=== PATIENT | male | born 1985 | race American Indian/Alaskan Native ===

== ENCOUNTER 2016-07-23 07:47 | Emergency (ER) | payer MEDICAID, OTHER ==
[2016-07-23] MEDS ORDERED: SUBLIMAZE IV ONE ×2 (08:14→11:12)
[2016-07-23] MEDS ORDERED: ZOFRAN IV ONE (08:15)
[2016-07-23] MEDS ORDERED: NACL ONE (08:50)
[2016-07-23 08:56] LABS: Hematocrit 31.8 % (35.5-45.6); Hemoglobin 10.6 gm/dl (11.8-15.2); Mean Corpuscular HGB Conc 33 % (32-34); Mean Corpuscular Volume 73 fl (84-94); Platelet Count 166 K/mm3 (140-440); Red Blood Count 4.36 M/mm3 (3.65-5.03); Red Cell Distribution Width 19.1 % (13.2-15.2); White Blood Count 5.3 K/mm3 (4.5-11.0)
[2016-07-23 09:01] LABS: Mean Corpuscular Hemoglobin 24 pg (28-32)
[2016-07-23 09:06] LABS: Albumin 2.6 g/dL (3.9-5); Albumin/Globulin Ratio 0.3 %; Alkaline Phosphatase 99 units/L (35-129); BUN/Creatinine Ratio 11.25; Blood Urea Nitrogen 9 mg/dL (9-20); Calcium 8.4 mg/dL (8.4-10.2); Carbon Dioxide 26 mmol/L (22-30); Glucose 98 mg/dL (75-100); Lipase 91 units/L (13-60); Sodium 135 mmol/L (137-145); Total Protein 10.8 g/dL (6.3-8.2)
[2016-07-23 09:09] LABS: Alanine Aminotransferase 99 units/L (7-56); Anion Gap 13 mmol/L; Potassium 4.4 mmol/L (3.6-5.0)
--- NOTE | 2016-07-23 10:00 | Cat Scan Report ---
CT ABDOMEN AND PELVIS WITH CONTRAST INDICATION: Abdominal pain. COMPARISON: None similar at this institution. FINDINGS: Abdomen and pelvis CT performed following intravenous administration of 100 cc of Omnipaque 300. LUNG BASES: Mild bibasilar groundglass atelectasis and a 1.6 cm bulla in the left lower lobe medially behind the heart. Nonspecific distal esophageal wall prominence/thickening, not excluded for gastroesophageal reflux and/or hiatal hernia, amongst others. ABDOMEN: Visually hypodense liver may indicate fatty infiltration. Right hepatic lobe approximately 18 cm in midclavicular length. Mild pericholecystic fatty sparing may also be noted. Patent veins. Mild splenomegaly, approximately 13.5 cm in length. No radiopaque gallstones. Subtle gallbladder wall prominence/thickening/edema not entirely excluded however. Subtle abnormal gastrohepatic ligament region hypodensity surrounds the celiac axis as on axial series 2, images 83-202 as also noted retroperitoneal with multiple left para-aortic lymph nodes measuring up to 1.7 cm as on axial image 146, series 2, amongst others. Pancreas, adrenals, non-aneurysmal abdominal aorta, IVC and kidneys within normal limits. Nonopacified GI tract evaluation limited, though grossly nonobstructive. Mild ascending colonic stool/possible constipation. No ascites. PELVIS: Minimal pelvic free fluid. Urinary bladder, seminal vesicles, prostate and rectosigmoid demonstrate normal CT appearance. Small bilateral inguinal lymph nodes measure up to 1.5 cm. No acute osseous process. CONCLUSION: 1. CT findings worrisome for retroperitoneal lymphadenopathy/lymphoma in this patient with mild hepatosplenomegaly. Fatty liver also possible. 2. Subtle gallbladder wall edema/prominence/thickening without radiopaque gallstones. Cholecystitis may be correlated for clinically in an appropriate setting. 3. Few other findings, as above. I phoned the above results to Dr. Hyde in the ER, 9:45 AM, 07/23/2016. Thank you for the opportunity to participate in this patient's care.
[2016-07-23] MEDS ORDERED: PEPCID IV ONE (11:13)
--- NOTE | 2016-07-23 11:18 | Emergency Department Report ---
HPI - General Chief Complaint: Abdominal Pain Time Seen by Provider: 07/23/16 11:00 - [facility] HPI: Room 7 The patient is a 30-year-old male presenting with a chief complaint of abdominal pain. The patient states his symptoms began last night at midnight with severe diffuse pain greatest in left upper quadrant. Patient describes the pain as "hurting" in nature. Patient denies nausea vomiting or diarrhea. Patient denies fever. Patient states the pain is been intermittent. Patient states he has not noticed a relationship between the pain and meals. The patient states his had intermittent episodes of the same pain for the past year and has been evaluated multiple times and has not been given a diagnosis. The patient states upon arrival to the ED his pain was severe and gives it a number of 159/10. The patient states now after being administered pain medication his pain is decreased to a 6/10 Location: Abdomen Duration: Intermittent since midnight Quality: "Hurting" Severity: Currently 6/10 Modifying factors: [see above] Context: [see above] Mode of transportation: [not driving] ED Past Medical Hx - Past Medical History Previous Medical History?: Yes Additional medical history: Hodgkins Lymphoma last chemotherapy 2012 - Surgical History Past Surgical History?: Yes Additional Surgical History: Lymph node removal in neck - Family History Family history: no significant - Social History Smoking Status: Current Every Day Smoker (1/7 per day) Substance Use Type: Alcohol, Marijuana - Medications Home Medications: Home Medications Medication Instructions Recorded Confirmed Last Taken Type Famotidine [Pepcid] 20 mg PO BID #60 tablet 07/23/16 Unknown Rx traMADol [Ultram] 50 mg PO Q6HR PRN #14 tablet 07/23/16 Unknown Rx ED Review of Systems ROS: Stated complaint: ABDOMINAL PAIN Other details as noted in HPI Comment: All other systems reviewed and negative Constitutional: denies: chills, fever Eyes: denies: eye pain, eye discharge, vision change ENT: denies: ear pain, throat pain Respiratory: denies: cough, shortness of breath, wheezing Cardiovascular: denies: chest pain, palpitations Endocrine: no symptoms reported Gastrointestinal: abdominal pain. denies: nausea, vomiting, diarrhea Genitourinary: denies: urgency, dysuria Musculoskeletal: denies: back pain, joint swelling, arthralgia Skin: denies: rash, lesions Neurological: denies: headache, weakness, paresthesias Psychiatric: denies: anxiety, depression Hematological/Lymphatic: denies: easy bleeding, easy bruising Physical Exam - Physical Exam Vital Signs: Vital Signs 07/23/16 07/23/16 07:56 09:50 Temperature 98.6 F Pulse Rate 82 63 Respiratory 22 16 Rate Blood Pressure 113/64 Blood Pressure 124/65 [Right] O2 Sat by Pulse 100 100 Oximetry Physical Exam: GENERAL: The patient is well-developed well-nourished male lying on stretcher not appearing to be in acute distress. [] HEENT: Normocephalic. Atraumatic. Extraocular motions are intact. Patient has moist mucous membranes. NECK: Supple. Trachea midline CHEST/LUNGS: Clear to auscultation. There is no respiratory distress noted. HEART/CARDIOVASCULAR: Regular. There is no tachycardia. There is no gallop rub or murmur. ABDOMEN: Abdomen is soft, with discomfort to palpation in the epigastric and left upper quadrant. Patient has normal bowel sounds. There is no abdominal distention. SKIN: There is no rash. There is no edema. There is no diaphoresis. NEURO: The patient is awake, alert, and oriented. The patient is cooperative. The patient has normal speech MUSCULOSKELETAL: There is no evidence of acute injury. ED Course Vital Signs 07/23/16 07/23/16 07:56 09:50 Temperature 98.6 F Pulse Rate 82 63 Respiratory 22 16 Rate Blood Pressure 113/64 Blood Pressure 124/65 [Right] O2 Sat by Pulse 100 100 Oximetry ED Medical Decision Making - Lab Data Result diagrams: 07/23/16 08:23 07/23/16 08:23 Laboratory Tests 07/23/16 07/23/16 08:23 08:23 WBC 5.3 RBC 4.36 Hgb 10.6 L Hct 31.8 L MCV 73 L MCH 24 L MCHC 33 RDW 19.1 H Plt Count 166 Lymph % (Auto) Machine [employer]ator [employer] [place] % (Auto) Machine Applicator [employer] Eos % (Auto) Machine Applicator [employer] Baso % (Auto) Machine Applicator [employer] Lymph # Machine Applicator [employer] [place] # Machine Applicator [employer] Eos # Machine Applicator [employer] Baso # Machine Applicator [employer] Seg Neutrophils % Machine Applicator [employer] Seg Neutrophils # Machine Applicator [employer] Sodium 135 L Potassium 4.4 Chloride 100.0 Carbon Dioxide 26 Anion Gap 13 BUN 9 Creatinine 0.8 Estimated GFR > 60 BUN/Creatinine Ratio 11.25 Glucose 98 Calcium 8.4 Total Bilirubin 0.90 AST 179 H ALT 99 H Alkaline Phosphatase 99 Total Protein 10.8 H Albumin 2.6 L Albumin/Globulin Ratio 0.3 Lipase 91 H - Radiology Data Radiology results: report reviewed (CT abdomen and pelvis), image reviewed (CT abdomen and pelvis) CT abdomen and pelvis (read by radiologist)-pancreas, adrenals, nonaneurysmal abdominal aorta, IVC and kidneys within normal limits. CT findings worrisome for retroperitoneal lymphadenopathy/lymphoma in this patient with mild hepatosplenomegaly. Fatty liver also possible. Subtle gallbladder wall edema/ prominent/thickening without radiopaque gallstones. Cholecystitis may be correlated for clinically in an appropriate setting. - Medical Decision Making Patient has no tenderness to palpation in the right upper quadrant and there is no relationship of his pain with meals somewhat suspicion for acute cholecystitis is very low. The patient encouraged to follow up with gastroenterology where he may potentially need an endoscopy for further evaluation - Differential Diagnosis peptic ulcer disease, pancreatitis, bowel perforation Critical care attestation.: If time is entered above; I have spent that time in minutes in the direct care of this critically ill patient, excluding procedure time. ED Disposition Clinical Impression: Acute abdominal pain, Lymphoma Disposition: DISCHARGED TO HOME OR SELFCARE Is pt being admited?: No Does the pt Need Aspirin: No Condition: Stable Instructions: Acute Abdominal Pain (ED), Peptic Ulcer (ED) Additional Instructions: Return to the emergency department immediately should you develop worsening symptoms, fever, inability to tolerate food or liquid or any other concerns. Prescriptions: Famotidine [Pepcid] 20 mg PO BID #60 tablet traMADol [Ultram] 50 mg PO Q6HR PRN #14 tablet PRN Reason: Pain Referrals: PRIMARY CARE, [Primary Care Provider] - 3-5 Days IFEOMA BURRIS MD [Staff Physician] - 3-5 Days (Dr. Burris is a manufacturing engineering professor. Please follow up with him for further evaluation) Time of Disposition: 11:22
[2016-07-23 11:41] LABS: Anisocytosis 1+; Basophils % (Manual) 0 % (0.0-1.8); Blastocytes % (Manual) 0 %; Eosinophils % (Manual) 0 % (0.0-4.3); Giant Platelets Rare; Hypochromasia 2+
[2016-07-23 11:42] LABS: Diff Status Complete; Platelet Estimate Cons
[2016-07-23] MEDS ORDERED: DILAUDID IV ONE (11:54)
[2016-07-23 12:09] VITALS: BP 139/85
[2016-07-23] MEDS ORDERED: REGLAN IM ONE (12:25)
== END 2016-07-23 12:34 | disposition home or self-care (01) ==
LOC: ED 07:47
DX: R10.84 Generalized abdominal pain (principal); C85.90 Non-Hodgkin lymphoma, unspecified, unspecified site; F17.200 Nicotine dependence, unspecified, uncomplicated; F12.10 Cannabis abuse, uncomplicated
CPT/HCPCS: 36415; 74177; 80053; 83690; 85007; 85025; 96372; 96374; 96375; 96376; 99284; J1170; J2405; J2765; J3010; Q9967